=== PATIENT | female | born 1970 | race Caucasian/White ===

== ENCOUNTER 2019-03-24 09:59 | Emergency (ER) | payer SELFPAY ==
[2019-03-24 10:43] VITALS: BP 133/81
--- NOTE | 2019-03-24 11:02 | ED ---
GI/ HPI - HPI Summary HPI Summary: 48 yo WF p/w left paraspinal T12-L1 pain after falling backwards and bumping it against a metal object, took an aleve for it with minimal relief. Has h/o sciatica and regularly takes gabapentin for it. Pt also c/o recurrent BV sx of brown yellow d/c, foul smelling x few days. - History of Current Complaint Chief Complaint: UCBackPain Time Seen by Provider: 03/24/19 10:49 Stated Complaint: BACK INJURY Hx Obtained From: Patient Onset/Duration: Started Minutes Ago Timing: Constant Severity: Moderate Current Severity: Moderate Pain Intensity: 7 - Allergy/Home Medications Allergies/Adverse Reactions: Allergies Allergy/AdvReac Type Severity Reaction Status Date / Time Penicillins Allergy Anaphylatic Verified 03/24/19 10:36 Shock Home Medications: Home Medications Gabapentin CAP(*) [Neurontin 300 CAP(*)] 600 mg PO ONCE PRN 03/24/19 [History Confirmed 03/24/19] Naproxen Sodium [Aleve] 220 mg PO BID PRN 03/24/19 [History Confirmed 03/24/19] PMH/Surg Hx/FS Hx/Imm Hx Previously Healthy: Yes - Surgical History Surgery Procedure, Year, and Place: hyserectomy. 2 c-sections. bladder sling Infectious Disease History: No Infectious Disease History: Denies: Traveled Outside the [place] in Last 30 Days - Family History Family History: [place] - Social History Alcohol Use: Weekly Substance Use Type: Reports: None Smoking Status (MU): Heavy Every Day Tobacco Smoker Type: Cigarettes Amount Used/How Often: 1 PPD Review of Systems Constitutional: Negative Eyes: Negative ENT: Negative Cardiovascular: Negative Respiratory: Negative Gastrointestinal: Negative Positive: see HPI Positive: Other - HPI Skin: Negative Neurological: Negative Psychological: Normal All Other Systems Reviewed And Are Negative: Yes Physical Exam - Summary Physical Exam Summary: Appearance: Positive: No Pain Distress Skin: Positive: Warm Head/Face: Positive: Normal Head/Face Inspection Eyes: Positive: Normal ENT: Positive: Normal ENT inspection Neck: Positive: Supple Respiratory/Lung Sounds: Positive: Clear to Auscultation. Negative: Rales, Rhonchi, Wheezes Cardiovascular: Positive: Normal, RRR, S1, S2 Abdomen : soft, NT/ND : PT DECLINED PELVIC EXAM AND VAGINAL SWAB Musculoskeletal: Positive: Left paraspinal TTP T12-L1, mild vertebral tenderness , no radiculopathy Neurological: Positive: CN Intact II-XII Vital Signs On Initial Exam: Initial Vitals Temp Pulse Resp BP Pulse Ox 36.9 C 82 16 133/81 100 03/24/19 10:38 03/24/19 10:38 03/24/19 10:38 03/24/19 10:38 03/24/19 10:38 Vital Signs Reviewed: Yes Diagnostics - Vital Signs Vital Signs Temp Pulse Resp BP Pulse Ox 03/24/19 10:38 36.9 C 82 16 133/81 100 - Laboratory Lab Statement: Any lab studies that have been ordered have been reviewed, and results considered in the medical decision making process. GIGU Course/Dx - Course Assessment/Plan: Xr of thoracic and lumbar spine- NEG for fx. Pain control with NSAIDS. if pain continues, advised to go back to PCP and get an MRI. BV- Flagyl as directed - Diagnoses Provider Diagnoses: Back pain, Bacterial vaginosis Discharge ED - Sign-Out/Discharge Documenting (check all that apply): Patient Departure All imaging exams completed and their final reports reviewed: Yes - Discharge Plan Condition: Stable Disposition: HOME Prescriptions: metroNIDAZOLE [Flagyl] 500 mg PO BID 7 Days #14 tablet Patient Education Materials: Bacterial Vaginosis (ED), Back Pain (ED) Referrals: No Primary Care Phys,NOPCP [Primary Care Provider] - - Billing Disposition and Condition Condition: STABLE Disposition: Home
== END 2019-03-24 11:47 | disposition home or self-care (01) ==
LOC: UCCORT 09:59
DX: M54.9 Dorsalgia, unspecified (principal); N76.0 Acute vaginitis; F17.210 Nicotine dependence, cigarettes, uncomplicated; B96.89 Other specified bacterial agents as the cause of diseases classified elsewhere; M54.30 Sciatica, unspecified side; Z88.0 Allergy status to penicillin
CPT/HCPCS: 72070; 72100; 99202; G0463